=== PATIENT | female | born 1990 | race Caucasian/White ===

== ENCOUNTER 2018-04-01 11:16 | Emergency (ER) | payer OTHER ==
[~2018-04-01] VITALS: Ht 157.4 cm; Wt 70.3 kg
[~2018-04-01 11:16] MED LIST: AMOXICILLIN500 M2 PO; AMOXICILLIN500 M3 PO; AUGMENTIN 875875 MG PO; BIRTH CONTROL PILL PO; CIPRO250 MG PO; CIPRODEX 0.3%-7.5 ML OT; CLINDAMYCIN HC300 MG PO; CLINDAMYCIN150 MG PO; HYDROCODONE BIT1 T11 PO; IBUPROFEN600 MG PO; KEFLEX500 M1 PO; KEFLEX500 MG PO; LISINOPRIL10 MG PO; MACROBID100 M1 PO; MOTRIN800 MG PO; Motrin,Rufen800 MG PO; NAPROSYN500 MG PO; NORCO 10-325 T1 EACH PO; Orphenadrine C100 MG PO; PEN-VK500 MG PO; PENICILLIN VK500 MG PO; Peridex 473 ML473 ML PO; SOMA250 MG PO; TOBREX OPHTH S2.5 ML OPH; TRIMOX500 MG PO; Xylocaine 2% Jel5 ML T; ZANTAC150 MG PO; ZYRTEC10 M2 PO
[2018-04-01] MEDS ORDERED: NAPROSYN500 MG PO (11:27)
== END 2018-04-01 13:23 | disposition home or self-care (01) ==
LOC: ED 11:16
DX: S60.221A Contusion of right hand, initial encounter (principal); R03.0 Elevated blood-pressure reading, without diagnosis of hypertension; Z88.8 Allergy status to other drugs, medicaments and biological substances; Z91.048 Other nonmedicinal substance allergy status; Z79.899 Other long term (current) drug therapy; Y04.2XXA Assault by strike against or bumped into by another person, initial encounter; Y93.89 Activity, other specified; Y92.89 Other specified places as the place of occurrence of the external cause; Y99.8 Other external cause status

== ENCOUNTER → 2019-07-17 | Outpatient (CLI) | payer OTHER | END | disposition home or self-care (01) | LOC: US 08:13 | DX: K76.0 Fatty (change of) liver, not elsewhere classified (principal) ==

== ENCOUNTER → 2019-08-09 | Outpatient (CLI) | payer OTHER | END | disposition home or self-care (01) | LOC: NM 07-27 08:00 → LAB 07:55 | DX: R10.84 Generalized abdominal pain (principal); N92.6 Irregular menstruation, unspecified; N94.89 Other specified conditions associated with female genital organs and menstrual cycle ==